=== PATIENT | female | born 1945 | race Caucasian/White ===

== ENCOUNTER 2020-04-01 18:22 | Emergency (ER) | payer BC, SELFPAY ==
[~2020-04-01] VITALS: Ht 167.6 cm; Wt 108.9 kg
[~2020-04-01 18:22] MED LIST: ACETAMINOPHEN A1 TAB PO; ASPIR 8181 MG PO; AVAPRO300 MG PO; COZAAR100 MG PO; DICLOFENAC SOD2.5 ML; DITROPAN XL10 MG PO; HCTZ/TRIAMTEREN1 CA1 PO; HYDROCODONE BIT PO; LIPI20 PO; NOR10 PO; OLANZAPINE5 M2 PO; PROZAC40 MG PO; SEROQUEL100 MG PO; TRAZODONE50 M1 PO; XANAX XR1 M1 PO
[2020-04-01 18:30] VITALS: Ht 167.6 cm; Wt 108.9 kg
--- NOTE | 2020-04-01 18:46 | NUR ---
PT REFUSED ABG STATED WAS NOT A PIN CUSHION. DR. CRAWFORD MADE AWARE.
[2020-04-01 19:34] LABS: BASOPHIL % 0.2 % (0-2); PLATELET COUNT 190 x10^3mcL (130-400)
[2020-04-01 19:40] LABS: CALCIUM 9.5 mg/dL (8.5-10.1); CARBON DIOXIDE 26.1 mmol/L (21-32); CHLORIDE SERUM 105 mmol/L (98-107); CREATININE SERUM 1.2 mg/dL (0.6-1.0); GLUCOSE SERUM 114 mg/dL (74-106); POTASSIUM SERUM 3.6 mmol/L (3.5-5.1); SODIUM SERUM 140 mmol/L (136-145)
[2020-04-01 19:44] LABS: ALKALINE PHOSPHATASE 57 U/L (46-116); ALT/SGPT 26 U/L (14-59); AST/SGOT 24 U/L (15-37); LACTIC DEHYDROGENASE (LDH) 250 U/L (100-190); TOTAL PROTEIN, SERUM 7.2 g/dL (6.4-8.2)
[2020-04-01 19:45] LABS: ALBUMIN 2.8 g/dL (3.4-5.0)
[2020-04-01 21:54] VITALS: BP 130/60
== END 2020-04-01 21:54 | disposition home or self-care (01) ==
LOC: ED 18:22
PROVIDERS: Emergency Medicine
DX: B34.9 Viral infection, unspecified (principal); R53.1 Weakness; M25.50 Pain in unspecified joint; I10 Essential (primary) hypertension; E78.5 Hyperlipidemia, unspecified; E78.00 Pure hypercholesterolemia, unspecified; M19.90 Unspecified osteoarthritis, unspecified site; Z88.1 Allergy status to other antibiotic agents; Z91.040 Latex allergy status
CPT/HCPCS: 83880; 85378; 87804; 94150; J1885; Q0092; U0003-CS